=== PATIENT | male | born 1970 | race Asian ===

== ENCOUNTER 2016-06-28 14:39 | Emergency (ER) | payer OTHER ==
[~2016-06-28] VITALS: Ht 175.3 cm; Wt 102.0 kg
[~2016-06-28 14:39] MED LIST: ALPR1TAB7 PO; GABA-531 PO; PHEN60TA15 PO
[2016-06-28] MEDS ORDERED: LEVE500T53 PO (14:44)
[2016-06-28] MEDS ORDERED: IOVERSOL 350 MG/ML 50 ML VIAL ONE (21:17)
[2016-06-28] MEDS ORDERED: SODIUM CHLORIDE 0.9% 0 ML ONE (21:17)
[2016-06-28] MEDS ORDERED: IOVERSOL 350 MG/ML 100 ML VIAL ONE (21:18)
[2016-06-28 21:20] LABS: BASOPHILS % (AUTO) 1.4 % (0.0-2.0); HEMATOCRIT 40.9 % (41-53); HEMOGLOBIN 13.7 g/dL (13.5-17.5); LYMPHOCYTES # (AUTO) 1.4 K/uL (1.0-4.8); LYMPHOCYTES % (AUTO) 22.5 % (22.0-44.0); MEAN CORPUSCULAR HEMOGLOBIN 28.4 pg (26.0-34.0); MEAN CORPUSCULAR HGB CONC 33.4 G/dL (31.0-37.0); MEAN CORPUSCULAR VOLUME 85 fL (80-100); NEUTROPHILS # (AUTO) 3.4 K/uL (1.8-7.7); NEUTROPHILS % (AUTO) 54.1 % (40.0-70.0); PLATELET COUNT (AUTO) 160 K/uL (150-450); RED BLOOD CELL COUNT(AUTO) 4.82 MIL/uL (4.50-5.90); RED CELL DISTRIBUTION WIDTH 14.4 % (11.5-14.5); WHITE BLOOD COUNT (AUTO) 6.3 K/uL (4.5-11.0)
[2016-06-28 21:34] LABS: ANION GAP 8 mmol/L (8-16); CALCIUM, TOTAL 8.4 mg/dL (8.8-10.5); CARBON DIOXIDE 28 mmol/L (22-29); CHLORIDE 101 mmol/L (98-107); CREATININE 0.84 mg/dL (0.60-1.30); GLOMERULAR FILTR. RATE CALC > 60 mL/min (>60); POTASSIUM 3.4 mmol/L (3.5-5.1); SODIUM SERUM 137 mmol/L (136-145); UREA NITROGEN, BLOOD 11 mg/dL (7-18)
[2016-06-28 21:58] LABS: ALANINE AMINOTRANSFERASE 160 U/L (12-78); ALBUMIN 3.5 g/dL (3.4-5.0); ASPARTATE AMINOTRANSFERASE 138 U/L (15-37); BILIRUBIN,TOTAL 0.3 mg/dL (0.1-1.0); CREATINE KINASE MB 5.6 ng/mL (0-5)
[2016-06-28 22:01] LABS: CREATINE KINASE, TOTAL 1613 U/L (39-308)
[2016-06-28] MEDS ORDERED: ASPIRIN 81 MG CHEWABLE TABLET ONE (22:19)
[2016-06-28] MEDS ORDERED: ASPIRIN 81 MG CHEWABLE TABLET PO ONE (22:30)
[2016-06-29 01:02] VITALS: BP 124/82
== END 2016-06-29 01:07 | disposition home or self-care (01) ==
LOC: EMS 14:41
DX: S06.9X9A Unspecified intracranial injury with loss of consciousness of unspecified duration, initial encounter (principal); S00.93XA Contusion of unspecified part of head, initial encounter; S70.01XA Contusion of right hip, initial encounter; F17.210 Nicotine dependence, cigarettes, uncomplicated; Z88.0 Allergy status to penicillin; Z88.6 Allergy status to analgesic agent; Z88.8 Allergy status to other drugs, medicaments and biological substances; V89.2XXA Person injured in unspecified motor-vehicle accident, traffic, initial encounter; Y93.01 Activity, walking, marching and hiking; Y92.480 Sidewalk as the place of occurrence of the external cause; Y99.8 Other external cause status
CPT/HCPCS: 70450; 72070; 72125; 74176; 99285; J7050

== ENCOUNTER 2016-07-30 21:25 | Emergency (ER) | payer OTHER ==
[~2016-07-30] VITALS: Ht 175.3 cm; Wt 98.2 kg
[~2016-07-30 21:25] MED LIST changes: +LEVE500T53 PO
[2016-07-31 01:02] VITALS: BP 144/89
== END 2016-07-31 01:47 | disposition home or self-care (01) ==
LOC: EMS 21:28
DX: L03.114 Cellulitis of left upper limb (principal); L03.113 Cellulitis of right upper limb; F11.90 Opioid use, unspecified, uncomplicated; F17.210 Nicotine dependence, cigarettes, uncomplicated; Z76.0 Encounter for issue of repeat prescription; Z88.0 Allergy status to penicillin; Z88.8 Allergy status to other drugs, medicaments and biological substances
CPT/HCPCS: 99283; 99406

== ENCOUNTER 2018-04-05 15:16 | Emergency (ER) | payer OTHER ==
[~2018-04-05] VITALS: Ht 175.3 cm; Wt 111.4 kg
[2018-04-05] MEDS ORDERED: TRAZ-219 PO (15:26)
[2018-04-05] MEDS ORDERED: OXCA300T29 PO (15:26)
[2018-04-05] MEDS ORDERED: LEVAHFA IH (15:26)
[2018-04-05] MEDS ORDERED: BUSP5TAB20 PO (15:26)
[2018-04-05] MEDS ORDERED: SALS500T16 PO (15:26)
[2018-04-05] MEDS ORDERED: ACETAMINOPHEN 500 MG TABLET PO ONE (17:15)
[2018-04-05 19:22] VITALS: BP 140/92
== END 2018-04-05 19:54 | disposition home or self-care (01) ==
LOC: EMS 15:16
DX: T40.1X1A Poisoning by heroin, accidental (unintentional), initial encounter (principal); I10 Essential (primary) hypertension; F41.9 Anxiety disorder, unspecified; F20.9 Schizophrenia, unspecified; F11.90 Opioid use, unspecified, uncomplicated; F17.210 Nicotine dependence, cigarettes, uncomplicated; Z88.0 Allergy status to penicillin; Z88.8 Allergy status to other drugs, medicaments and biological substances; Y92.89 Other specified places as the place of occurrence of the external cause
CPT/HCPCS: 93005; 99406

== ENCOUNTER 2021-05-05 16:00 | Emergency (ER) | payer MEDICAID, OTHER ==
[~2021-05-05] VITALS: Ht 175.3 cm; Wt 113.6 kg
[~2021-05-05 16:00] MED LIST changes: -ALPR1TAB7 PO; +BUSP5TAB20 PO; +GABA-1181 PO; -GABA-531 PO; +LEVAHFA IH; +LEVE500T20 PO; -LEVE500T53 PO; +OXCA300T57 PO; -PHEN60TA15 PO; +SALS500T16 PO; +TRAZ-252 PO
[2021-05-05] MEDS ORDERED: AmLODIPine BESYLATE 5 MG TABLET PO ONE (16:30)
[2021-05-05] MEDS ORDERED: HALOPERIDOL 5 MG TABLET PO ONE (16:30)
[2021-05-05] MEDS ORDERED: LORazepam 2 MG TABLET PO ONE (16:30)
[2021-05-05 18:41] LABS: AMPHET/METH SCREEN,URINE POSITIVE (NEGATIVE); BARBITURATE SCREEN, URINE NEGATIVE (NEGATIVE); BENZODIAZEPINES SCREEN,URINE NEGATIVE (NEGATIVE); CANNABINOID SCREEN,URINE NEGATIVE (NEGATIVE); COCAINE SCREEN,URINE NEGATIVE (NEGATIVE); METHADONE SCREEN, URINE NEGATIVE (NEGATIVE); OPIATE SCREEN,URINE NEGATIVE (NEGATIVE); PHENCYCLIDINE SCREEN,URINE NEGATIVE (NEGATIVE)
[2021-05-05 19:35] VITALS: BP 138/80
[2021-05-05] MEDS ORDERED: LevETIRAcetam 500 MG TABLET PO ONE (20:00)
[2021-05-05] MEDS ORDERED: OXcarbazepine 300 MG TABLET PO ONE (20:00)
== END 2021-05-05 20:00 | disposition home or self-care (01) ==
LOC: EMS 16:00
DX: F15.10 Other stimulant abuse, uncomplicated (principal); G40.909 Epilepsy, unspecified, not intractable, without status epilepticus; F17.210 Nicotine dependence, cigarettes, uncomplicated; F11.90 Opioid use, unspecified, uncomplicated; I10 Essential (primary) hypertension; F41.9 Anxiety disorder, unspecified; F90.9 Attention-deficit hyperactivity disorder, unspecified type
CPT/HCPCS: 93005; 99284